=== PATIENT | male | born 1960 | race Caucasian/White ===

== ENCOUNTER 2023-01-24 11:15 | Outpatient (CLI) | payer OTHER | END 2023-01-24 11:16 | disposition home or self-care (01) | LOC: CSHWCC 11:15 | PROVIDERS: ATTEND Nurse Practitioner Family | DX: T81.89XD Other complications of procedures, not elsewhere classified, subsequent encounter (principal); K94.00 Colostomy complication, unspecified | CPT/HCPCS: 97605; 99203; G0463 ==

== ENCOUNTER 2023-01-27 10:44 | Outpatient (CLI) | payer OTHER | END 2023-01-27 10:45 | disposition home or self-care (01) | LOC: CSHWCC 10:44 | PROVIDERS: ATTEND Nurse Practitioner Family | DX: T81.89XD Other complications of procedures, not elsewhere classified, subsequent encounter (principal) | CPT/HCPCS: 11042; 97605 ==

== ENCOUNTER 2023-01-31 16:07 | Outpatient (CLI) | payer OTHER | END 2023-01-31 16:08 | disposition home or self-care (01) | LOC: CSHWCC 16:07 | PROVIDERS: ATTEND Nurse Practitioner Family | DX: T81.89XD Other complications of procedures, not elsewhere classified, subsequent encounter (principal) | CPT/HCPCS: 97605 ==

== ENCOUNTER 2023-02-03 11:56 | Outpatient (CLI) | payer OTHER | END 2023-02-03 11:57 | disposition home or self-care (01) | LOC: CSHWCC 11:56 | PROVIDERS: ATTEND Nurse Practitioner Family | DX: C18.9 Malignant neoplasm of colon, unspecified (principal); C67.9 Malignant neoplasm of bladder, unspecified; K56.609 Unspecified intestinal obstruction, unspecified as to partial versus complete obstruction; Z93.3 Colostomy status | CPT/HCPCS: 97605 ==

== ENCOUNTER 2023-02-07 14:20 | Outpatient (CLI) | payer OTHER | END 2023-02-07 14:21 | disposition home or self-care (01) | LOC: CSHWCC 14:20 | PROVIDERS: ATTEND Nurse Practitioner Family | DX: T81.89XD Other complications of procedures, not elsewhere classified, subsequent encounter (principal) | CPT/HCPCS: 97605 ==

== ENCOUNTER 2023-02-10 08:09 | Outpatient (CLI) | payer OTHER | END 2023-02-10 08:10 | disposition home or self-care (01) | LOC: CSHWCC 08:09 | PROVIDERS: ATTEND Nurse Practitioner Family | DX: R60.0 Localized edema (principal); T81.89XD Other complications of procedures, not elsewhere classified, subsequent encounter | CPT/HCPCS: 97597 ==

== ENCOUNTER 2023-02-14 08:12 | Outpatient (CLI) | payer OTHER | END 2023-02-14 08:13 | disposition home or self-care (01) | LOC: CSHWCC 08:12 | PROVIDERS: ATTEND Nurse Practitioner Family | DX: T81.89XD Other complications of procedures, not elsewhere classified, subsequent encounter (principal); K94.00 Colostomy complication, unspecified; R60.0 Localized edema | CPT/HCPCS: 11042; 11045 ==

== ENCOUNTER 2023-02-17 11:07 | Outpatient (CLI) | payer OTHER | END 2023-02-17 11:08 | disposition home or self-care (01) | LOC: CSHWCC 11:07 | PROVIDERS: ATTEND Nurse Practitioner Family | DX: R60.0 Localized edema (principal); T81.89XD Other complications of procedures, not elsewhere classified, subsequent encounter | CPT/HCPCS: 99211; G0463 ==

== ENCOUNTER 2023-02-24 10:32 | Outpatient (CLI) | payer MEDICARE, OTHER | END 2023-02-24 10:33 | disposition home or self-care (01) | LOC: CSHWCC 10:32 | PROVIDERS: ATTEND Nurse Practitioner Family | DX: R60.0 Localized edema (principal); T81.89XD Other complications of procedures, not elsewhere classified, subsequent encounter | CPT/HCPCS: 97139; G0463; 99213 ==

== ENCOUNTER 2023-03-09 14:58 | Outpatient (CLI) | payer MEDICARE, OTHER | END 2023-03-09 14:59 | disposition home or self-care (01) | LOC: CSHWCC 14:58 | PROVIDERS: ATTEND Nurse Practitioner Family | DX: T81.89XD Other complications of procedures, not elsewhere classified, subsequent encounter (principal); K94.00 Colostomy complication, unspecified | CPT/HCPCS: 97139; G0463; 99211 ==

== ENCOUNTER 2023-08-08 07:15 | Outpatient (CLI) | payer MEDICARE, MEDICAID ==
[2023-08-08] MEDS ORDERED: Iopamidol 300 61% 100 ML VIAL FS ONE (10:08)
== END 2023-08-08 07:16 | disposition home or self-care (01) ==
LOC: CSHCT 07:15
PROVIDERS: ATTEND Internal Medicine Hematology & Oncology
DX: C18.7 Malignant neoplasm of sigmoid colon (principal); K76.9 Liver disease, unspecified; Z98.890 Other specified postprocedural states; N40.0 Benign prostatic hyperplasia without lower urinary tract symptoms
CPT/HCPCS: 71260; 74177; 82565

== ENCOUNTER 2024-01-09 07:53 | Outpatient (CLI) | payer MEDICARE | END 2024-01-09 07:54 | disposition home or self-care (01) | LOC: CSHCT 07:53 | PROVIDERS: ATTEND Internal Medicine Hematology & Oncology | DX: C18.7 Malignant neoplasm of sigmoid colon (principal) | CPT/HCPCS: 71260; 74177; 82565 ==